=== PATIENT | male | born 1975 | race Caucasian/White ===

== ENCOUNTER 2019-06-14 10:32 | Emergency (ER) | payer OTHER ==
[~2019-06-14] VITALS: Ht 170.2 cm; Wt 63.5 kg
[~2019-06-14 10:32] MED LIST: ALBU90OI INH; ANTIBIOTICS; Augmentin 875-1 EACH PO; BENZ100A PO; CEPH500 PO; CLAR500 PO; CLIN150 PO; CLIN300 PO; CLOT1TC TOP; CYCL10 PO; DOXY100 PO; EAR GTTS; Flovent Diskus50 MCG INH; HYDACE5 PO; IBUP200 PO; IBUP600 PO; IBUP800 PO; MONT10T PO; Monodox100 MG PO; Nasonex17 GM; Norco 5-325 Ta1 EACH PO; OFLO.3OTSO AU; OXYACE5T PO; PSEU120ER PO; Prednisone20 MG PO; RXOXYACE PO; SPACE CHAMBER1 EACH MC; TRAM50 PO; Ultram50 MG PO; Ventolin/Prove6.7 GM INH; Zithromax250 MG PO
== END 2019-06-14 12:51 | disposition left against medical advice (07) ==
LOC: ER 10:32
DX: Z53.21 Procedure and treatment not carried out due to patient leaving prior to being seen by health care provider (principal)

== ENCOUNTER 2022-03-06 11:28 | Emergency (ER) | payer OTHER ==
[~2022-03-06] VITALS: Ht 170.2 cm; Wt 63.5 kg
[2022-03-06 13:20] LABS: Influenza B, PCR NEGATIVE (NEGATIVE); Resp Syncytial Virus, PCR NEGATIVE (NEGATIVE); SARS-Cov-2 (COVID-19) PCR, MMC NEGATIVE (NEGATIVE)
[2022-03-06 13:23] LABS: Influenza A, PCR POSITIVE (NEGATIVE)
[2022-03-06] MEDS ORDERED: ONDA4ODT MM (14:01)
[2022-03-06] MEDS ORDERED: SUPHEDRINE PO (14:01)
== END 2022-03-06 14:16 | disposition home or self-care (01) ==
LOC: ER 11:28
PROVIDERS: Physician Assistant
DX: J10.1 Influenza due to other identified influenza virus with other respiratory manifestations (principal); R11.0 Nausea; Z88.2 Allergy status to sulfonamides; Z20.822 Contact with and (suspected) exposure to COVID-19
CPT/HCPCS: 0241U; 71046

== ENCOUNTER 2022-04-17 02:34 | Emergency (ER) | payer OTHER ==
[~2022-04-17] VITALS: Ht 170.2 cm; Wt 63.5 kg
[~2022-04-17 02:34] MED LIST changes: +ONDA4ODT MM; +SUPHEDRINE PO
[2022-04-17] MEDS ORDERED: CIPHYDOTSU TOP (03:28)
== END 2022-04-17 03:46 | disposition home or self-care (01) ==
LOC: ER 02:34
DX: H60.92 Unspecified otitis externa, left ear (principal); J32.9 Chronic sinusitis, unspecified; Z88.2 Allergy status to sulfonamides
CPT/HCPCS: J1100